=== PATIENT | male | born 2005 | race Caucasian/White ===

== ENCOUNTER 2023-11-05 19:17 | Outpatient (REF) | payer BC, SELFPAY ==
--- NOTE | ~2023-11-05 | MR_ITS ---
EXAMINATION: MR SHOULDER WITHOUT CONTRAST, LEFT CLINICAL INFORMATION: Pain COMPARISON: None available. TECHNIQUE: MRI of the shoulder without contrast was performed on a high-field scanner. FINDINGS: ROTATOR CUFF: Supraspinatus, infraspinatus, teres minor, subscapularis are intact. Possible mild subscapularis tendinosis. No muscle atrophy or fatty infiltration. BICEPS: Intact CORACOACROMIAL ARCH: The undersurface of the acromion is curved with no subacromial spur. The acromioclavicular joint is normal. LABRUM/CAPSULE: T2 bright signal extending through the base of the posterior labrum, consistent with a labral tear.Remainder of the labrum appears intact. Inferior capsule is intact. GLENOHUMERAL JOINT/MARROW: There is edema in the anterior aspect of the humeral head, likely reflecting bone contusion. No fracture plane is identified. Small joint fluid. MR/MR shoulder LT wo con IMPRESSION: 1. Posterior labrum abnormal findings consistent with a labral tear.. 2. Edema in the anterior aspect of the humeral head, likely reflecting bone contusion. 3. Possible mild subscapularis tendinosis. No rotator cuff tear is seen. Electronically signed by: Quoc Saldaña MD 11/06/2023 05:33 PM EDT RP
== END 2023-11-05 19:18 | disposition home or self-care (01) ==
LOC: HO.MRI 19:17
PROVIDERS: Visit Provider Family Medicine
DX: M25.512 Pain in left shoulder (principal); B35.4 Tinea corporis
CPT/HCPCS: 73221